=== PATIENT | female | born 1965 | race Caucasian/White ===

== ENCOUNTER 2018-01-13 06:27 | Emergency (ER) | payer BC ==
[2018-01-13] MEDS ORDERED: ASPIRIN PO ONE (06:54)
[2018-01-13 07:34] LABS: Basophils % (Auto) 0.4 % (0.0-1.8); Eosinophils # (Auto) 0.2 K/mm3 (0.0-0.4); Eosinophils % (Auto) 1.8 % (0.0-4.3); Hematocrit 42.5 % (30.3-42.9); Hemoglobin 13.8 gm/dl (10.1-14.3); Lymphocytes # (Auto) 3.1 K/mm3 (1.2-5.4); Lymphocytes % (Auto) 27.1 % (13.4-35.0); Mean Corpuscular HGB Conc 32 % (30-34); Mean Corpuscular Hemoglobin 27 pg (28-32); Mean Corpuscular Volume 84 fl (79-97); Monocytes # (Auto) 0.7 K/mm3 (0.0-0.8); Monocytes % (Auto) 6.2 % (0.0-7.3); Platelet Count 248 K/mm3 (140-440); Red Blood Count 5.07 M/mm3 (3.65-5.03); Red Cell Distribution Width 14.5 % (13.2-15.2)
[2018-01-13 07:45] LABS: BUN/Creatinine Ratio 28; Blood Urea Nitrogen 14 mg/dL (7-17); Hemolysis Index 4
--- NOTE | 2018-01-13 08:33 | Emergency Department Report ---
ED Chest Pain HPI - General Chief Complaint: Chest Pain Stated Complaint: BREAST PAIN Time Seen by Provider: 01/13/18 08:14 Source: patient, family ( is bedside) Mode of arrival: Ambulatory Limitations: No Limitations - History of Present Illness Initial Comments: Mrs. Young is a healthy 52-year-old female who presents with 1 month of symptoms. She was evaluated by her PCP Dr. Woodall for flulike symptoms. He is given Tamiflu. She felt slightly better. Last week she was reevaluated for persistent symptoms. She was given prednisone and amoxicillin. She finished a course of antibiotics yesterday. She has lchest pain and cold sweats. She now has a hoarse voice. She denies cough. She takes Singulair daily for sinus symptoms. She is not taking this medication 1 month. She takes Lyrica for fibromyalgia versus restless leg syndrome. She works in elementary school. -: Gradual, month(s) (1) Onset: during rest Pain Location: other (diffuse chest pain bilaterally) Pain Radiation: none Severity: moderate Quality: aching Consistency: constant Improves With: nothing Context: recent illness Other Symptoms: cough - Related Data Home Medications Medication Instructions Recorded Confirmed Last Taken Benzonatate [Tessalon Perles] 100 mg PO TID PRN 01/13/18 01/13/18 Unknown Montelukast [Singulair] 10 mg PO QPM 01/13/18 01/13/18 Unknown Pregabalin [Lyrica] 75 mg PO BID 01/13/18 01/13/18 Unknown Previous Rx's Medication Instructions Recorded Last Taken Type HYDROcodone/APAP 5-325 [Circle 1 each PO Q6HR PRN #15 tablet 01/13/18 Unknown Rx 5/325] Levofloxacin [Levaquin] 750 mg PO QDAY 5 Days #5 tablet 01/13/18 Unknown Rx Allergies Allergy/AdvReac Type Severity Reaction Status Date / Time codeine Allergy Itching Verified 01/13/18 06:54 Heart Score - HEART Score History: Slightly suspicious EKG: Normal Age: 45-65 Risk factors: No known risk factors Troponin: < normal limit HEART Score: 1 ED Review of Systems ROS: Stated complaint: BREAST PAIN Other details as noted in HPI Comment: All other systems reviewed and negative Constitutional: malaise ENT: denies: ear pain, throat pain Respiratory: denies: cough Cardiovascular: chest pain ED Past Medical Hx - Past Medical History Previous Medical History?: Yes Additional medical history: eczema, environmental allergies - Surgical History Past Surgical History?: No - Medications Home Medications: Home Medications Medication Instructions Recorded Confirmed Last Taken Type Benzonatate [Tessalon Perles] 100 mg PO TID PRN 01/13/18 01/13/18 Unknown History HYDROcodone/APAP 5-325 [Circle 1 each PO Q6HR PRN #15 tablet 01/13/18 Unknown Rx 5/325] Levofloxacin [Levaquin] 750 mg PO QDAY 5 Days #5 tablet 01/13/18 Unknown Rx Montelukast [Singulair] 10 mg PO QPM 01/13/18 01/13/18 Unknown History Pregabalin [Lyrica] 75 mg PO BID 01/13/18 01/13/18 Unknown History ED Physical Exam - General Limitations: No Limitations General appearance: alert, in no apparent distress - Head Head exam: Present: atraumatic, normocephalic - Eye Eye exam: Present: normal appearance, EOMI. Absent: scleral icterus, conjunctival injection, nystagmus - ENT ENT exam: Present: normal exam, normal orophraynx, mucous membranes moist - Expanded ENT Exam Expanded Ear exam: Present: normal external inspection, other (no effusion no erythema bilaterally of the tympanic membranes) - Neck Neck exam: Present: normal inspection, tenderness. Absent: meningismus - Respiratory Respiratory exam: Present: normal lung sounds bilaterally. Absent: respiratory distress, wheezes, rales, rhonchi - Cardiovascular Cardiovascular Exam: Present: regular rate, normal rhythm, normal heart sounds. Absent: bradycardia, tachycardia, systolic murmur, diastolic murmur, rubs, gallop - GI/Abdominal GI/Abdominal exam: Present: soft, normal bowel sounds. Absent: distended, tenderness, guarding, rebound - Extremities Exam Extremities exam: Present: normal inspection - Back Exam Back exam: Present: normal inspection - Neurological Exam Neurological exam: Present: alert, oriented X3 - Psychiatric Psychiatric exam: Present: normal affect, normal mood - Skin Skin exam: Present: warm, dry, intact, normal color. Absent: rash ED Course Vital Signs 01/13/18 01/13/18 06:28 06:47 Temperature 97.8 F 97.8 F Pulse Rate 75 75 Respiratory 16 16 Rate Blood Pressure 115/83 115/83 O2 Sat by Pulse 98 98 Oximetry ED Medical Decision Making - Lab Data Result diagrams: 01/13/18 07:13 01/13/18 07:11 Laboratory Results - last 24 hr 01/13/18 01/13/18 01/13/18 07:11 07:13 09:34 WBC 11.5 H RBC 5.07 H Hgb 13.8 Hct 42.5 MCV 84 MCH 27 L MCHC 32 RDW 14.5 Plt Count 248 Lymph % (Auto) 27.1 Blair % (Auto) 6.2 Eos % (Auto) 1.8 Baso % (Auto) 0.4 Lymph # 3.1 Blair # 0.7 Eos # 0.2 Baso # 0.0 Seg Neutrophils % 64.5 Seg Neutrophils # 7.5 Sodium 141 Potassium 3.9 Chloride 100.1 Carbon Dioxide 25 Anion Gap 20 BUN 14 Creatinine 0.5 L Estimated GFR > 60 BUN/Creatinine Ratio 28 Glucose 105 H Calcium 9.0 Troponin T < 0.010 < 0.010 - EKG Data -: EKG Interpreted by [facility] EKG shows normal: sinus rhythm, intervals, QRS complexes, ST-T waves Rate: normal - EKG Data 01/13/18 08:36 Left axis deviation present - Radiology Data Radiology results: report reviewed - Medical Decision Making Mrs. Yuong is has one month of infectious symptoms. No indication of ACS. She is PERC negative. I will prescribe Levaquin 5 day course. Also provided a prescription for Circle for pain as needed. Critical care attestation.: If time is entered above; I have spent that time in minutes in the direct care of this critically ill patient, excluding procedure time. ED Disposition Clinical Impression: Acute bronchitis Disposition: DC-01 TO HOME OR SELFCARE Is pt being admited?: No Does the pt Need Aspirin: No Condition: Stable Instructions: Acute Bronchitis (ED) Prescriptions: HYDROcodone/APAP 5-325 [Circle 5/325] 1 each PO Q6HR PRN #15 tablet PRN Reason: Pain Levofloxacin [Levaquin] 750 mg PO QDAY 5 Days #5 tablet Referrals: PRIMARY CARE, [Primary Care Provider] - 3-5 Days Forms: Work/School Release Form(ED) Time of Disposition: 10:42
[2018-01-13] MEDS ORDERED: NORCO 5/325 PO ONE (08:37)
--- NOTE | 2018-01-13 09:14 | XRay Report ---
PORTABLE CHEST INDICATION: Chest pain. COMPARISON: None similar at this institution. FINDINGS: Portable, frontal chest radiograph demonstrates approximately 5 x 2.4 cm ovoid right distal paratracheal calcified lymph node. Otherwise normal cardiomediastinal silhouette. Clear lungs. Few bony degenerative changes. CONCLUSION: No acute chest process with few other findings, as described. Thank you for the opportunity to participate in this patient's care.
[2018-01-13 11:26] VITALS: BP 115/74
== END 2018-01-13 10:46 | disposition home or self-care (01) ==
LOC: ED 06:27
DX: J20.9 Acute bronchitis, unspecified (principal); Z88.6 Allergy status to analgesic agent
CPT/HCPCS: 36415; 71045; 80048; 84484; 85025; 93005; 93010; 99284